=== PATIENT | female | born 1990 | race African-American/Black ===

== ENCOUNTER 2017-08-01 14:24 | Emergency (ER) | payer SELFPAY ==
[~2017-08-01] VITALS: Ht 167.6 cm; Wt 113.5 kg
[~2017-08-01 14:24] MED LIST: ALBU6.7H INH; ZITH250T PO
[2017-08-01 14:26] VITALS: BP 136/83; PULSE 101; RESP 15; TEMP 98.4; O2SAT 98
--- NOTE | 2017-08-01 15:36 | PD ---
HPI Chief Complaint: Skin Problem Time Seen by Provider: 15:36 Travel History International Travel<30 days: No Contact w/Intl Traveler<30days: No Traveled to known affect area: No History of Present Illness HPI 27-year-old female presents emergency Department with complaint of an abscess that is draining to her right upper inner thigh she noticed on Monday. Denies fever, vomiting. Has been doing warm washcloths to the area. Reports area is painful. Symptoms are mild in severity. Has no other medical complaint. No modifying factors or associated signs and symptoms. PFSH Past Medical History Diminished Hearing: No GERD: Yes Hepatitis: No Hypertension: No Respiratory: Yes (bronchitis) Pancreatitis: No Seizures: No Menopausal: No : 0 Past Surgical History Tonsillectomy: No Social History Alcohol Use: Yes (OCC) Tobacco Use: Yes Substance Use: No Allergies-Medications (Allergen,Severity, Reaction): Coded Allergies: No Known Allergies (Verified , 08/01/17) Reported Meds & Prescriptions Reported Meds & Active Scripts Active Ibuprofen 800 Mg Tab 800 Mg PO Q6HR PRN Bactrim DS (Sulfamethoxazole-Trimethoprim) 800-160 Mg Tab 1 Tab PO BID 10 Days Keflex (Cephalexin) 500 Mg Cap 500 Mg PO Q6H 10 Days Proventil Hfa (Albuterol Sulfate) 6.7 Gm Aero 1 Puff INH ONCE * SHAKE WELL BEFORE USE * Zithromax Z-Zana (Azithromycin) 250 Mg Tab 250 Mg PO DIRECTED 5 Days 500 MG (2 TABLETS) PO ON DAY 1, THEN 250 MG (1 TABLET) PO ON DAYS 2 TO 5. Review of Systems Except as stated in HPI: all other systems reviewed are Neg Physical Exam Narrative GENERAL: Well-nourished, well-developed black female patient, in no acute distress; afebrile, nontoxic-appearing SKIN: There is an indurated area to the right upper inner thigh which measures about 1.5 cm in diameter. It is nonfluctuant and there is pointing and drainage. There is no zone of inflammation around it and no lymphangitis. HEAD: Atraumatic. Normocephalic. EYES: Pupils equal and round. No scleral icterus. No injection or drainage. ENT: Mucosa pink and moist. Airway patent. NECK: Trachea midline. CARDIOVASCULAR: Regular rate. RESPIRATORY: No accessory muscle use. GASTROINTESTINAL: Obese. MUSCULOSKELETAL: No obvious deformities. No clubbing. No cyanosis. No edema. NEUROLOGICAL: Awake and alert. Oriented 3. No obvious cranial nerve deficits. Motor grossly within normal limits. Normal speech. PSYCHIATRIC: Appropriate mood and affect; insight and judgment normal. Data Data Last Documented VS Vital Signs Date Time Temp Pulse Resp B/P (MAP) Pulse Ox O2 Delivery O2 Flow Rate FiO2 08/01/17 14:26 98.4 101 15 136/83 (100) 98 Orders Orders Wound Culture And Gram Stain (08/01/17 15:55) Lidocaine 1% Inj (50 Ml) (Xylocaine 1% I (08/01/17 16:00) MDM Medical Decision Making Medical Screen Exam Complete: Yes Emergency Medical Condition: Yes Medical Record Reviewed: Yes Differential Diagnosis Abscess, folliculitis, cellulitis Narrative Course 27-year-old female with draining abscess of the right upper inner thigh. It is nonfluctuant. She is afebrile and nontoxic-appearing. Denies fever, vomiting. Wound culture pending. Keflex, Bactrim, ibuprofen prescribed for home. Instructed patient to follow up with primary care provider. Patient verbalizes understanding and agreement with treatment plan. Patient is medically cleared and stable for discharge. Discussed reasons to return to the emergency department. Patient agrees with treatment plan. The patients vital signs are stable and the patient is stable for outpatient follow-up and treatment. Patient discharged home, stable and in no acute distress. Diagnosis Primary Impression: Abscess of right thigh Referrals: Primary Care Physician Patient Instructions: Abscess (ED), Abscess Follow-up (ED), General Instructions Departure Forms: Tests/Procedures, Work Release Enter return to work date: Aug 02, 2017 Additional Instructions: Complete full course of antibiotics Warm compresses to the affected area Keep area clean and dry Ibuprofen or Tylenol as directed and as needed for pain and inflammation Follow-up with primary care provider Return to emergency department immediately with worsening of symptoms Med/Other Pt SpecificInfo: Prescription(s) given Scripts Ibuprofen (Ibuprofen) 800 Mg Tab 800 MG PO Q6HR Y for PAIN, #30 TAB 0 Refills Prov: Diane Fontenot 08/01/17 Sulfamethoxazole-Trimethoprim (Bactrim DS) 800-160 Mg Tab 1 TAB PO BID for Infection for 10 Days, TAB 0 Refills Prov: Diane Fontenot 08/01/17 Cephalexin (Keflex) 500 Mg Cap 500 MG PO Q6H for Infection for 10 Days, CAP 0 Refills Prov: Diane Fontenot 08/01/17 Disposition: 01 DISCHARGE HOME Condition: Stable Diane Fontenot Aug 01, 2017 15:36
[2017-08-01] MEDS ORDERED: CEPH-460 PO (15:39)
[2017-08-01] MEDS ORDERED: IBUP800T23 PO (15:39)
[2017-08-01] MEDS ORDERED: BACT800T5 PO (15:39)
[2017-08-01] MEDS ORDERED: LIDOCAINE HCL 1% 50 ML VIAL INFIL ONE (16:00)
== END 2017-08-01 16:42 | disposition home or self-care (01) ==
LOC: NEPK 14:24
DX: L02.415 Cutaneous abscess of right lower limb (principal); K21.9 Gastro-esophageal reflux disease without esophagitis; Z72.0 Tobacco use
CPT/HCPCS: 86403; 87070; 99283

== ENCOUNTER 2017-10-16 11:54 | Emergency (ER) | payer SELFPAY ==
[~2017-10-16] VITALS: Ht 170.2 cm; Wt 143.0 kg
[~2017-10-16 11:54] MED LIST changes: +BACT800T5 PO; +CEPH-460 PO; +IBUP1TAB7 PO
[2017-10-16 11:56] VITALS: BP 136/95; PULSE 99; RESP 18; TEMP 98.6; O2SAT 99
--- NOTE | 2017-10-16 12:26 | PD ---
HPI Chief Complaint: Injury Time Seen by Provider: 12:19 Travel History International Travel<30 days: No Contact w/Intl Traveler<30days: No Traveled to known affect area: No History of Present Illness HPI This is a 27-year-old female who presents to the emergency department having had sudden onset of pain in her left knee on the posterior aspect and she felt something pop. Since then she's had moderate severity pain in the knee, intermittent, worse when she extends the knee, and worse when she walks and tries to weight-bear. She denies any injuries. She denies any numbness or weakness in the knee. She does not have any swelling in the leg. PFSH Past Medical History Diminished Hearing: No GERD: Yes Hepatitis: No Hypertension: No Respiratory: Yes (bronchitis) Immunizations Current: Yes Pancreatitis: No Seizures: No Tetanus Vaccination: < 5 Years ?: Not Menopausal: No : 0 Past Surgical History Surgical History: No Previous Surgery Tonsillectomy: No Social History Alcohol Use: Yes (OCC) Tobacco Use: No Substance Use: No Allergies-Medications (Allergen,Severity, Reaction): Coded Allergies: No Known Allergies (Verified Adverse Reaction, Unknown, 10/16/17) Reported Meds & Prescriptions Reported Meds & Active Scripts Active No Active Prescriptions or Reported Medications Review of Systems General / Constitutional: No: Fever, Chills Respiratory: No: Cough, Shortness of Breath Physical Exam Narrative GENERAL: Well-appearing, no acute distress, nontoxic SKIN: Warm and dry. HEAD: Atraumatic. Normocephalic. ENT: No nasal bleeding or discharge. Moist mucous membranes MUSCULOSKELETAL: Able to flex the left knee without difficulty, pain with full extension, tender to palpation in the posterior fossa with no focal tenderness of the patella. No obvious effusion. Vascular: 2+ left DP pulse with normal capillary refill. NEUROLOGICAL: Awake and alert. No obvious cranial nerve deficits. Motor grossly within normal limits. Normal speech. PSYCHIATRIC: Appropriate mood and affect; insight and judgment normal. Data Data Last Documented VS Vital Signs Date Time Temp Pulse Resp B/P (MAP) Pulse Ox O2 Delivery O2 Flow Rate FiO2 10/16/17 11:56 98.6 99 18 136/95 (109) 99 MDM Medical Decision Making Medical Screen Exam Complete: Yes Emergency Medical Condition: Yes Differential Diagnosis Meniscal injury, ligamentous injury, patellar dislocation, sprain Narrative Course This is a 27-year-old female who presents to the emergency department with pain in her left knee that was sudden onset and started yesterday when she felt something move in her knee. She has a benign exam and a normal neurovascular exam. X-ray will be obtained. If reassuring I think the patient can be treated with an Marco wrap, ice and anti-inflammatories. She can be given crutches. If she doesn't improve she should follow-up with orthopedics in one week. Scripts No Active Prescriptions or Reported Meds Rachel Zavala MD Oct 16, 2017 12:26
[2017-10-16] MEDS ORDERED: NAPROXEN 500 MG TAB PO ONE (12:30)
--- NOTE | 2017-10-16 13:35 | RADRPT ---
EXAM DATE/TIME: 10/16/2017 12:34 [facility] COMPARISON: No previous studies available for comparison. INDICATIONS : Left knee became painful last night, denies injury, pain is anterior and posterior when joint is full y extended MEDICAL HISTORY : None. SURGICAL HISTORY : None. ENCOUNTER: Initial ACUITY: 1 day PAIN SCORE: 10/10 LOCATION: Left knee FINDINGS: Four view examination of the left knee demonstrates no evidence of fracture or dislocation. Bony min eralization is normal. The articular surfaces are intact. The suprapatellar soft tissues have a nor mal configuration. CONCLUSION: 1. Negative examination of the knee. Heriberto Casper MD on October 16, 2017 at 13:33 Board Certified Radiologist. This report was verified electronically.
[2017-10-16] MEDS ORDERED: NAPR500T2 PO (13:58)
--- NOTE | 2017-10-16 13:58 | PD ---
Data Data Last Documented VS Vital Signs Date Time Temp Pulse Resp B/P (MAP) Pulse Ox O2 Delivery O2 Flow Rate FiO2 10/16/17 11:56 98.6 99 18 136/95 (109) 99 Orders Orders Knee, Complete (4vws) (10/16/17 ) Naproxen (Naprosyn) (10/16/17 12:30) MDM Supervised Visit with REESE: No Narrative Course X-ray was reviewed and patient was reassured. I suspect the patient has ligamentous injury of her knee. She was given crutches and asked to weight- bear only as tolerated on the knee. We will Marco wrap the knee. If she doesn't improve in one week she should follow-up with an orthopedist. Diagnosis Primary Impression: Left knee sprain Qualified Codes: S83.92XA - Sprain of unspecified site of left knee, initial encounter Referrals: [facility] Patient Instructions: General Instructions Additional Instruction: Marco wrap, elevate, rest and ice your knee. Use crutches as needed. Follow-up with an orthopedic doctor if your pain has not improved in one week. Med/Other Pt SpecificInfo: Prescription(s) given Scripts Naproxen (Naproxen) 500 Mg Tab 500 MG PO BID Y for PAIN SCALE 4 TO 10, #20 TAB 0 Refills Prov: Rachel Zavala MD 10/16/17 Rachel Zavala MD Oct 16, 2017 13:58
== END 2017-10-16 14:19 | disposition home or self-care (01) ==
LOC: NETRI 11:54
DX: S83.92XA Sprain of unspecified site of left knee, initial encounter (principal); K21.9 Gastro-esophageal reflux disease without esophagitis; X50.9XXA Other and unspecified overexertion or strenuous movements or postures, initial encounter
CPT/HCPCS: 73564; 99283; E0113

== ENCOUNTER 2018-05-20 07:27 | Emergency (ER) | payer SELFPAY ==
[~2018-05-20] VITALS: Ht 160 cm; Wt 130.0 kg
[~2018-05-20 07:27] MED LIST changes: -ALBU6.7H INH; -BACT800T5 PO; -CEPH-460 PO; -IBUP1TAB7 PO; +NAPR500T2 PO; -ZITH250T PO
[2018-05-20 07:30] VITALS: BP 147/79; PULSE 98; RESP 14; TEMP 98.6; O2SAT 97
--- NOTE | 2018-05-20 08:03 | PD ---
HPI Chief Complaint: Related Problem Time Seen by Provider: 08:02 Travel History International Travel<30 days: No Contact w/Intl Traveler<30days: No Traveled to known affect area: No History of Present Illness HPI 28-year-old female patient with history of no significant past medical issues, recently found that she was by urine test, has been having several days of vaginal spotting, and cramping, states the spotting has stopped now. She denies any fevers or any other issues. She states that the pain is currently minimal. Modifying Factors: None Associated Signs & Symptoms: and vaginal bleeding Risk Factors: None PFSH Past Medical History Medical History: Denies Significant Hx Diminished Hearing: No GERD: Yes Hepatitis: No Hypertension: No Respiratory: Yes (bronchitis) Immunizations Current: Yes Pancreatitis: No Seizures: No ?: LMP: 04/05/18 Menopausal: No : 0 Past Surgical History Surgical History: No Previous Surgery Tonsillectomy: No Social History Alcohol Use: Yes (OCC) Tobacco Use: Yes (1/2 PPD) Substance Use: No Allergies-Medications (Allergen,Severity, Reaction): Coded Allergies: No Known Allergies (Verified Adverse Reaction, Unknown, 10/16/17) Reported Meds & Prescriptions Reported Meds & Active Scripts Active Naproxen 500 Mg Tab 500 Mg PO BID PRN Review of Systems Except as stated in HPI: all other systems reviewed are Neg Physical Exam Narrative GENERAL: Well-developed young -[place] female patient currently in mild distress. Awake and oriented 3. SKIN: Focused skin assessment warm/dry. HEAD: Atraumatic. Normocephalic. EYES: Pupils equal and round. No scleral icterus. No injection or drainage. ENT: No nasal bleeding or discharge. Mucous membranes pink and moist. NECK: Trachea midline. No JVD. CARDIOVASCULAR: Regular rate and rhythm. No murmur appreciated. RESPIRATORY: No accessory muscle use. Clear to auscultation. Breath sounds equal bilaterally. GASTROINTESTINAL: Abdomen soft, non-tender, nondistended. Hepatic and splenic margins not palpable. MUSCULOSKELETAL: No obvious deformities. No clubbing. No cyanosis. No edema. NEUROLOGICAL: Awake and alert. No obvious cranial nerve deficits. Motor grossly within normal limits. Normal speech. PSYCHIATRIC: Appropriate mood and affect; insight and judgment normal. Data Data Last Documented VS Vital Signs Date Time Temp Pulse Resp B/P (MAP) Pulse Ox O2 Delivery O2 Flow Rate FiO2 05/20/18 07:30 98.6 98 14 147/79 (101) 97 Orders Orders Beta Hcg (Quant/Titer) (05/20/18 07:53) Complete Blood Count With Diff (05/20/18 07:53) Basic Metabolic Panel (Bmp) (05/20/18 07:53) Complete Rh (05/20/18 07:53) Us Pelvis (Ques Pr/Ect)W Trans (05/20/18 09:35) Ed Discharge Order (05/20/18 12:03) Labs Laboratory Tests Test 05/20/18 08:07 White Blood Count 8.2 TH/MM3 Red Blood Count 4.14 MIL/MM3 Hemoglobin 12.2 GM/DL Hematocrit 35.7 % Mean Corpuscular Volume 86.2 FL Mean Corpuscular Hemoglobin 29.4 PG Mean Corpuscular Hemoglobin Concent 34.1 % Red Cell Distribution Width 15.3 % Platelet Count 317 TH/MM3 Mean Platelet Volume 7.4 FL Neutrophils (%) (Auto) 50.9 % Lymphocytes (%) (Auto) 40.0 % Monocytes (%) (Auto) 7.5 % Eosinophils (%) (Auto) 0.7 % Basophils (%) (Auto) 0.9 % Neutrophils # (Auto) 4.2 TH/MM3 Lymphocytes # (Auto) 3.3 TH/MM3 Monocytes # (Auto) 0.6 TH/MM3 Eosinophils # (Auto) 0.1 TH/MM3 Basophils # (Auto) 0.1 TH/MM3 CBC Comment DIFF FINAL Differential Comment Blood Urea Nitrogen 7 MG/DL Creatinine 0.73 MG/DL Random Glucose 84 MG/DL Calcium Level 8.5 MG/DL Sodium Level 137 MEQ/L Potassium Level 3.6 MEQ/L Chloride Level 106 MEQ/L Carbon Dioxide Level 21.9 MEQ/L Anion Gap 9 MEQ/L Estimat Glomerular Filtration Rate 115 ML/MIN Human Chorionic Gonadotropin, Quant 4803 MIU/ML MDM Medical Decision Making Medical Screen Exam Complete: Yes Emergency Medical Condition: Yes Medical Record Reviewed: Yes Interpretation(s) Laboratory Tests Test 05/20/18 08:07 Human Chorionic Gonadotropin, Quant 4803 MIU/ML (0-5) Last 24 hours Impressions Pelvis Ultrasound 05/20/18 0901 Signed Impressions: CONCLUSION: 1. Poorly visualized uterus due to prominent shadowing from overlying bowel ga s. 2. Nonvisualization of right ovary. 3. Moderate pelvic free fluid Differential Diagnosis Threatened AB versus ectopic versus dysmenorrhea Narrative Course Patient is Rh+. Beta-hCG is 4000, but ultrasound did not show obvious IUP, however she would be fairly early still. An ectopic cannot be rule out at this level, versus a completed AB. At this point, my plan would be to have her follow-up with [facility] in 2 days for reevaluation. She should return for any worsening in pain, bleeding, and as needed. The plan was discussed with her and she states understanding. Diagnosis Primary Impression: Threatened Referrals: Hallie Adam MD 2 days Disposition: 01 DISCHARGE HOME Condition: Stable Amna Blake MD May 20, 2018 08:03
[2018-05-20 08:32] LABS: AUTOMATED NEUTROPHIL # 4.2 TH/MM3 (1.8-7.7); BASOPHIL # 0.1 TH/MM3 (0-0.2); BASOPHIL % 0.9 % (0.0-2.0); EOSINOPHIL # 0.1 TH/MM3 (0-0.4); EOSINOPHIL % 0.7 % (0.0-4.0); HEMATOCRIT 35.7 % (35.0-46.0); HEMOGLOBIN 12.2 GM/DL (11.6-15.3); LYMPHOCYTE # 3.3 TH/MM3 (1.0-4.8); MEAN CELL VOLUME 86.2 FL (80.0-100.0); MEAN CORPUSCULAR HEMOGLOBIN 29.4 PG (27.0-34.0); MEAN CORPUSCULAR HGB CONC 34.1 % (32.0-36.0); MEAN PLATELET VOLUME 7.4 FL (7.0-11.0); MONO % 7.5 % (0.0-8.0); MONOCYTE # 0.6 TH/MM3 (0-0.9); NEUT % 50.9 % (16.0-70.0); PLATELET COUNT 317 TH/MM3 (150-450); RED BLOOD COUNT 4.14 MIL/MM3 (4.00-5.30); RED CELL DISTRIBUTION WIDTH 15.3 % (11.6-17.2); WHITE BLOOD COUNT 8.2 TH/MM3 (4.0-11.0)
[2018-05-20 09:00] LABS: BICARBONATE 21.9 MEQ/L (21.0-32.0); CALCIUM 8.5 MG/DL (8.5-10.1); CREATININE 0.73 MG/DL (0.50-1.00)
--- NOTE | 2018-05-20 11:51 | RADRPT ---
EXAM DATE: 05/20/2018 11:32 AM EDT AGE/SEX: 28 years / Female INDICATIONS: Bleeding CLINICAL DATA: This is the patient's initial encounter. Patient reports that signs and symptoms have been present for 2 days and indicates a pain score of 0/10. MEDICAL/SURGICAL HISTORY: Gastroesophageal reflux disease. Bronchitis. Alcohol. Tobacco use. None. COMPARISON: No prior exams available for comparison. TECHNIQUE: Real-time ultrasound of the pelvis was performed using an endovaginal transducer. [facility] [id number] MEASUREMENTS: Uterus:__9.6 x 7.4 x 6.3 cm Endometrial Stripe:__19 mm Right Ovary:__ n/a Not visualized. Left Ovary:__ 4.0 x 3.4 x 1.7 cm FINDINGS: Uterus: Uterus is heterogeneous in appearance. Prominent shadowing limiting evaluation. Right Ovary: Not visualized. Left Ovary: Ovary contains no mass or significant cystic lesion. Other: Moderate amount of pelvic free fluid. CONCLUSION: 1. Poorly visualized uterus due to prominent shadowing from overlying bowel gas. 2. Nonvisualization of right ovary. 3. Moderate pelvic free fluid Electronically signed by: Rancho Hook MD 05/20/2018 11:50 AM EDT
[2018-05-20 12:44] VITALS: BP 134/76
== END 2018-05-20 12:45 | disposition home or self-care (01) ==
LOC: NEPE 07:27
DX: O20.0 Threatened abortion (principal); K21.9 Gastro-esophageal reflux disease without esophagitis; F17.210 Nicotine dependence, cigarettes, uncomplicated; Z3A.00 Weeks of gestation of pregnancy not specified
CPT/HCPCS: 76700; 76817; 80048; 84702; 85025; 86901; 99284

== ENCOUNTER 2018-08-29 09:42 | Inpatient (IN) ==
[2018-08-29] MEDS ORDERED: Naloxone Inj 0.4 MG/ML Vial IV.PUSH PRN (10:32)
[2018-08-29] MEDS ORDERED: Sodium Chlor 0.9% Inj 500 ML IV.SIG PRN (10:32)
[2018-08-29] MEDS ORDERED: Sod Chloride 0.9% Inj 1,000 ML IV.CONT PRN (10:32)
[2018-08-29] MEDS ORDERED: Oxytocin 30 Units/500ml Premix 30 UNITS/500 ML BAG IV.SIG ONE (10:32)
[2018-08-29] MEDS ORDERED: fentaNYL Citrate Inj 100 MCG/2 ML Ampul IV.PUSH PRN ×2 (10:32)
[2018-08-29] MEDS ORDERED: Sodium Chloride 0.9% 2 ML Flush PRN IV.FLUSH (10:42)
[2018-08-29] MEDS ORDERED: Citric Acid/Sodium Citrate Liq 30 ML UDC PO SCH (10:45)
--- NOTE | 2018-08-29 12:45 | P.HPOB ---
History of Present Illness Primary Care Physician: [facility] Chief Complaint: Leaking of fluid History of Present Illness: 28-year-old at 20 weeks gestation presents complaining of leaking of fluid and vaginal bleeding. Patient was subsequently seen by Dr. Salguero and then at change of shift I have seen the patient. [facility] care at [facility] which was uneventful until today. Weeks Gestation:: 20 Para: 0 : 1 Review of Systems All other systems reviewed negative except as stated in HPI [facility] - History History Provided By: Patient - Medical History Medical History: Medical History (Last Updated 05/28/18 @ 18:16 by Zahida Mclain RN) Patient denies medical problems (Acute) - Surgical History Surgical History: Surgical History (Last Updated 05/28/18 @ 14:21 by Renetta Ray RN) No history of previous surgery - Tobacco History Second Hand Smoke Exposure: No Smoking Status: Former smoker Tobacco Type: Cigarettes - Alcohol History How Often Do You Have a Drink Containing Alcohol: Monthly or less Medications and Allergies Active Medications: Active Medications Citric Acid/Sodium Citrate (Sodium Citrate/Citric Acid Liq) 30 ml PO REMOTE ENCODING [employer]PERATIONS [employer]PER[employer] [facility] Stop: 09/02/18 10:44 Fentanyl Citrate (Fentanyl Inj) 50 mcg IV.PUSH Q1H PRN PRN Reason: Pain Scale 3 - 5 Fentanyl Citrate (Fentanyl Inj) 100 mcg IV.PUSH Q1H PRN PRN Reason: PAIN SCALE 6 TO 10 Lactated Ringer's (Lr 1000 Ml Inj) 1,000 mls @ 125 mls/hr IV.CONT .Q8H [facility] Last Admin: 08/29/18 11:00 Dose: 125 mls/hr Lactated Ringer's (Lr 1000 Ml Inj) 1,000 mls @ 3,000 mls/hr IV.SIG UNSCH PRN PRN Reason: compromise or epidural Sodium Chloride (Ns Inj) 500 mls @ 1,000 mls/hr IV.SIG UNSCH PRN PRN Reason: SEE LABEL COMMENTS Sodium Chloride (Ns Inj) 1,000 mls @ 100 mls/hr IV.CONT .Q10H PRN PRN Reason: SEE LABEL COMMENTS Lidocaine HCl (Xylocaine 1% Inj) 0.1 ml I-DERMAL PRN PRN PRN Reason: For IV start Stop: 09/01/18 10:31 Lidocaine HCl (Xylocaine 1% Inj) 10 ml INFILTRATN PRN PRN PRN Reason: For episiotomy repair Stop: 08/31/18 10:31 Mineral Oil (Muri-Lube Oil) 10 ml TOPICAL PRN PRN PRN Reason: PRN perineal massage Naloxone HCl (Narcan Inj) 0.1 mg IV.PUSH Q2M PRN PRN Reason: for opiate reversal Ondansetron HCl (Zofran Inj) 4 mg IV.PUSH Q6H PRN PRN Reason: NAUSEA OR VOMITING Sodium Chloride (Ns Flush) 2 ml IV.FLUSH BID MADIE Sodium Chloride (Ns Flush) 2 ml IV.FLUSH PRN PRN PRN Reason: FLUSH AFTER USING IV ACCESS Allergies Allergy/AdvReac Type Severity Reaction Status Date / Time No Known Allergies Allergy Verified 08/29/18 12:10 Home Medications Medication Instructions Recorded Confirmed Type PNV cmb#95-ferrous fumarate-FA 1 tab PO DAILY 08/29/18 08/29/18 History [] Exam Vital signs: Vital Signs 08/29/18 10:10 08/29/18 10:45 Temperature 98.6 F Pulse Rate 99 H Respiratory Rate 20 Blood Pressure 139/75 Intake & Output 08/28/18 08/29/18 08/29/18 18:59 06:59 18:59 Weight 151.5 kg Narrative: GENERAL: Well-nourished, well-developed patient, morbidly obese. SKIN: Warm and dry. HEAD: Normocephalic and atraumatic. EYES: No scleral icterus. No injection or drainage. ENT: No nasal drainage noted. Mucous membranes pink. Airway patent. NECK: Supple, trachea midline. No JVD. CARDIOVASCULAR: Regular rate and rhythm without murmurs, gallops, or rubs. RESPIRATORY: Breath sounds equal bilaterally. No accessory muscle use. BREASTS: Bilateral exam showed no masses , no retractions, no nipple discharge. ABDOMEN/GI: Abdomen soft, non-tender, bowel sounds present, no rebound, no guarding Gravid to 20 weeks size Fundal Height: Morbidly obese patient limited fundal height GENITOURINARY: External Genitalia: intact and normal in appearance BUS glands: Unremarkable Cervix: Moderate Dilatation: Fingertip Effacement: Long Station: OOP Per vagina per Dr. Salguero earlier moderate to profuse vaginal bleeding at this time note well-formed clots but no active bright red bleeding Membranes: ruptured Uterine Contractions: Not appreciated FHT's + EXTREMITIES: No cyanosis or edema. BACK: Nontender without obvious deformity. No CVA tenderness. NEUROLOGICAL: Awake and alert. Motor and sensory grossly within normal limits. Five out of 5 muscle strength in all muscle groups. Normal speech. Results - Labs CBC & Chem 7: 08/29/18 12:29 08/29/18 12:29 - Imaging Ultrasound done on 08/23/2018: Single intrauterine anterior placenta ERICA within normal weight 307 g Ultrasound done today September 05, 2018 single intrauterine placenta is covering the office of the cervix ERICA is 0 Caprini VTE Risk Assessment Caprini VTE Risk Assessment: No/Low Risk (score <= 1) Caprini Risk Assessment Model: Point Value = 1 Point Value = 2 Point Value = 3 Point Value = 5 Age 41-60 Minor surgery BMI > 25 kg/m2 Swollen legs Varicose veins or History of unexplained or recurrent spontaneous Oral contraceptives or hormone replacement Sepsis (< 1 month) Serious lung disease, including pneumonia (< 1 month) Abnormal pulmonary function Acute myocardial infarction Congestive heart failure (< 1 month) History of inflammatory bowel disease Medical patient at bed rest Age 61-74 Arthroscopic surgery Major open surgery (> 45 min) Laparoscopic surgery (> 45 min) Malignancy Confined to bed (> 72 hours) Immobilizing plaster cast Central venous access Age >= 75 History of VTE Family history of VTE Factor V Leiden Prothrombin [id number] Lupus anticoagulant Anticardiolipin antibodies Elevated serum homocysteine Heparin-induced thrombocytopenia Other congenital or acquired thrombophilia Stroke (< 1 month) Elective arthroplasty Hip, pelvis, or leg fracture Acute spinal cord injury (< 1 month) Prophylaxis Regimen: Total Risk Factor Score Risk Level Prophylaxis Regimen 0-1 Low Early ambulation 2 Moderate Order ONE of the following: *Sequential Compression Device (SCD) *Heparin 5000 units SQ BID 3-4 Higher Order ONE of the following medications: *Heparin 5000 units SQ TID *Enoxaparin/Lovenox 40 mg SQ daily (WT < 150 kg, CrCl > 30 mL/min) *Enoxaparin/Lovenox 30 mg SQ daily (WT < 150 kg, CrCl > 10-29 mL/min) *Enoxaparin/Lovenox 30 mg SQ BID (WT < 150 kg, CrCl > 30 mL/min) AND/OR *Sequential Compression Device (SCD) 5 or more Highest Order ONE of the following medications: *Heparin 5000 units SQ TID (Preferred with Epidurals) *Enoxaparin/Lovenox 40 mg SQ daily (WT < 150 kg, CrCl > 30 mL/min) *Enoxaparin/Lovenox 30 mg SQ daily (WT < 150 kg, CrCl > 10-29 mL/min) *Enoxaparin/Lovenox 30 mg SQ BID (WT < 150 kg, CrCl > 30 mL/min) AND *Sequential Compression Device (SCD) Assessment and Plan - Diagnosis (1) Placental abruption in second trimester Code(s): O45.92 - Premature separation of placenta, unspecified, second trimester Status: Acute (2) Oligohydramnios due to rupture of membranes Code(s): O41.00X0 - Oligohydramnios, unspecified trimester, not applicable or unspecified; O42.90 - Premature rupture of membranes, unspecified as to length of time between rupture and onset of labor, unspecified weeks of gestation Status: Acute (3) 20 weeks gestation of Code(s): Z3A.20 - 20 weeks gestation of Status: Acute Plan: Had an extensive discussion with patient and family. Unfortunately at this time the is not viable. Initially patient(her mother father several aunts and cousins as well as the father of the baby) and family requested transfer however the estimated weight is 307 g. They were made aware that at this weight of just above 300 g the likelihood of any type of survival outside of the uterus is virtually nil .I did discuss with them delivering a 500 g but even that is considered to be quite rare to have intact or any type of survivability. Clinically strongly suggests not only oligohydramnios secondary to rupture of membranes but placental abruption being the placenta was noted to be anterior on an ultrasound which was only several days ago and now covering the cervical os. At this time since there is a heartbeat they do not want any actions to try to actively evacuate or terminate the however they understand should an emergency arise and bleeding becomes heavy or profuse and compromises the maternal well being that evacuation of the may need to be performed whether a trial of labor vaginally with induction medications or emergent hysterotomy to evacuate the . At this time will obtain a serial CBC, type and crossmatch, as well as start IV antibiotics. has signed a consent to proceed for vaginal delivery or surgical intervention as clinically indicated
[2018-08-29 12:49] LABS: Baso % (Auto) 0.6 % (0.0-2.0); Eos # (Auto) 0.1 th/mm3 (0.0-0.4); Eos % (Auto) 1.4 % (0.0-4.0); Hematocrit 33.9 % (35.0-46.0); Hemoglobin 11.5 gm/dL (11.6-15.3); Lymph # (Auto) 2.2 th/mm3 (1.0-4.8); Lymph % (Auto) 26.9 % (9.0-44.0); Mean Corpuscular Hemoglobin 30.1 pg (27.0-34.0); Mean Corpuscular Volume 88.5 fL (80.0-100.0); Mono # (Auto) 0.7 th/mm3 (0.0-0.9); Mono % (Auto) 8.5 % (0.0-8.0); Neut # (Auto) 5.1 th/mm3 (1.8-7.7); Neut % (Auto) 62.6 % (16.0-70.0); Platelet Count 310 th/mm3 (150-450); Red Blood Count 3.83 mil/mm3 (4.00-5.30); Red Cell Distribution Width 14.6 % (11.6-17.2); White Blood Count 8.2 th/mm3 (4.0-11.0)
[2018-08-29 13:14] LABS: Alanine Aminotransferase 60 U/L (10-53); Albumin 2.6 g/dL (3.4-5.0); Anion Gap 10 meq/L (5-15); Aspartate Aminotransferase 25 U/L (15-37); Blood Urea Nitrogen 8 mg/dL (7-18); Calcium 8.5 mg/dL (8.5-10.1); Carbon Dioxide 23.7 meq/L (21.0-32.0); Chloride 105 meq/L (98-107); Glomerular Filtration Rate Greater Than 89 mL/min (>89); Glucose,Random 90 mg/dL (74-106); Potassium 4.1 meq/L (3.5-5.1); Sodium 139 meq/L (136-145)
[2018-08-29 13:16] LABS: Alkaline Phosphatase 73 U/L (45-117); Total Protein 6.6 g/dL (6.4-8.2)
[2018-08-29 14:22] LABS: Baso % (Auto) 0.4 % (0.0-2.0); Eos # (Auto) 0.1 th/mm3 (0.0-0.4); Eos % (Auto) 1.7 % (0.0-4.0); Hematocrit 33.5 % (35.0-46.0); Hemoglobin 11.4 gm/dL (11.6-15.3); Lymph # (Auto) 2.3 th/mm3 (1.0-4.8); Lymph % (Auto) 30.1 % (9.0-44.0); Mean Corpuscular HGB Conc 34.1 % (32.0-36.0); Mean Corpuscular Hemoglobin 30.2 pg (27.0-34.0); Mean Corpuscular Volume 88.5 fL (80.0-100.0); Mean Platelet Volume 7.9 fL (7.0-11.0); Mono # (Auto) 0.6 th/mm3 (0.0-0.9); Mono % (Auto) 8.3 % (0.0-8.0); Neut # (Auto) 4.5 th/mm3 (1.8-7.7); Neut % (Auto) 59.5 % (16.0-70.0); Platelet Count 291 th/mm3 (150-450); Red Blood Count 3.78 mil/mm3 (4.00-5.30); Red Cell Distribution Width 14.8 % (11.6-17.2); White Blood Count 7.5 th/mm3 (4.0-11.0)
[2018-08-29] MEDS ORDERED: Erythromycin Inj 250 MG in Sodium Chlor 0.9% Inj 100 ML IV.SIG SCH ×2 (16:00→17:00)
[2018-08-29 17:17] LABS: Bilirubin,Urine Negative (Negative); Glucose,Urine (UA) Negative (Negative); Leukocyte Esterase,Urine Trace (Negative); Mucus,Urine Few /lpf (Occasional); Nitrite,Urine Negative (Negative); Specific Gravity,Urine 1.012 (1.002-1.035); Squamous Epithelial Cell,Urine 1 /hpf (0-5)
[2018-08-29 17:27] LABS: Clarity,Urine Slightly Cloudy (Clear); Color,Urine Pink (Yellw/Straw)
[2018-08-29 17:49] LABS: Amphetamine Urine With Conf Neg (Neg); Benzodiazepine Urine With Conf Neg (Neg)
[2018-08-29] MEDS ORDERED: Acetaminophen 325 MG Tablet PO PRN (19:29)
[2018-08-29] MEDS: Famotidine PF Inj 20 MG/2 ML Vial IV.PUSH SCH (22:17)
[2018-08-29] MEDS: Sodium Chloride 0.9% 2 ML Flush BID IV.FLUSH SCH (22:17)
[2018-08-30] MEDS ORDERED: miSOPROStol 200 MCG Tablet PO ONE
--- NOTE | 2018-08-30 00:03 | P.OBLABOR ---
Subjective Interval history: Of note: Patient seen earlier after extensive discussion with patient and family regarding survival rate @ 20 weeks with no amniotic fluid and an abrupted placenta as well as maternal risks of fever, DIC, possible necessity of surgery including but not limited to hysterectomy should she become severely ill patient has decided to proceed with termination of . Cervidil was ordered and placed by RN earlier however MD received a call that it fell out after patient use the restroom. A second Cervidil just placed by MD in the posterior fornix the cervix is noted to be fingertip dilation 50% effaced presenting part is out of pelvis. Continue with current plan at this time no active vaginal bleeding present. Objective Vital Signs: Vital Signs - 8 hr 08/29/18 20:27 08/29/18 23:02 Temperature 98.5 F 98.5 F Pulse Rate 94 H 98 H Respiratory Rate 18 18 Blood Pressure 135/80 123/70 Objective: Pelvic Exam: Cervix: [-] Dilatation: [-] Effacement: [-] Station: [-] Presentation: [-] Membranes: [intact or ruptured] Uterine Contractions: [-] FHT's: Category: [-] Baseline: [-] Reactive: [-] Variability: [-] Decels: [-] Assessment and Plan - Diagnosis (1) Placental abruption in second trimester Code(s): O45.92 - Premature separation of placenta, unspecified, second trimester Status: Acute (2) Oligohydramnios due to rupture of membranes Code(s): O41.00X0 - Oligohydramnios, unspecified trimester, not applicable or unspecified; O42.90 - Premature rupture of membranes, unspecified as to length of time between rupture and onset of labor, unspecified weeks of gestation Status: Acute (3) 20 weeks gestation of Code(s): Z3A.20 - 20 weeks gestation of Status: Acute Plan: Had an extensive discussion with patient and family. Unfortunately at this time the is not viable. Initially patient(her mother father several aunts and cousins as well as the father of the baby) and family requested transfer however the estimated weight is 307 g. They were made aware that at this weight of just above 300 g the likelihood of any type of survival outside of the uterus is virtually nil .I did discuss with them delivering a 500 g but even that is considered to be quite rare to have intact or any type of survivability. Clinically strongly suggests not only oligohydramnios secondary to rupture of membranes but placental abruption being the placenta was noted to be anterior on an ultrasound which was only several days ago and now covering the cervical os. At this time since there is a heartbeat they do not want any actions to try to actively evacuate or terminate the however they understand should an emergency arise and bleeding becomes heavy or profuse and compromises the maternal well being that evacuation of the may need to be performed whether a trial of labor vaginally with induction medications or emergent hysterotomy to evacuate the . At this time will obtain a serial CBC, type and crossmatch, as well as start IV antibiotics. has signed a consent to proceed for vaginal delivery or surgical intervention as clinically indicated
--- NOTE | 2018-08-30 07:55 | P.OBLABOR ---
Subjective Interval history: pt post Cervidil x2 with no change in cervix noted. No active bleeding at this time. Plan of care change management coordinator to Cytotec 600 every 4. I have also reviewed her ultrasounds patient does have a myoma which is approximately 7 x 8 cm however it is not obstructing the lower uterine segment. At this time afebrile continue IV antibiotics. Type and crossed for 2 units. CBC pending this morning peer Objective Vital Signs: Vital Signs - 8 hr 08/30/18 00:25 08/30/18 02:25 08/30/18 03:25 Temperature Pulse Rate 95 H 94 H 92 H Respiratory Rate Blood Pressure 08/30/18 03:50 08/30/18 05:25 Temperature 98.4 F Pulse Rate 91 H 94 H Respiratory Rate 18 Blood Pressure 136/75 Objective: Pelvic Exam: Cervix: [-] Dilatation: [-] Effacement: [-] Station: [-] Presentation: [-] Membranes: [intact or ruptured] Uterine Contractions: [-] FHT's: Category: [-] Baseline: [-] Reactive: [-] Variability: [-] Decels: [-] Assessment and Plan - Diagnosis (1) Placental abruption in second trimester Code(s): O45.92 - Premature separation of placenta, unspecified, second trimester Status: Acute (2) Oligohydramnios due to rupture of membranes Code(s): O41.00X0 - Oligohydramnios, unspecified trimester, not applicable or unspecified; O42.90 - Premature rupture of membranes, unspecified as to length of time between rupture and onset of labor, unspecified weeks of gestation Status: Acute (3) 20 weeks gestation of Code(s): Z3A.20 - 20 weeks gestation of Status: Acute Plan: Had an extensive discussion with patient and family. Unfortunately at this time the is not viable. Initially patient(her mother father several aunts and cousins as well as the father of the baby) and family requested transfer however the estimated weight is 307 g. They were made aware that at this weight of just above 300 g the likelihood of any type of survival outside of the uterus is virtually nil .I did discuss with them delivering a 500 g but even that is considered to be quite rare to have intact or any type of survivability. Clinically strongly suggests not only oligohydramnios secondary to rupture of membranes but placental abruption being the placenta was noted to be anterior on an ultrasound which was only several days ago and now covering the cervical os. At this time since there is a heartbeat they do not want any actions to try to actively evacuate or terminate the however they understand should an emergency arise and bleeding becomes heavy or profuse and compromises the maternal well being that evacuation of the may need to be performed whether a trial of labor vaginally with induction medications or emergent hysterotomy to evacuate the . At this time will obtain a serial CBC, type and crossmatch, as well as start IV antibiotics. has signed a consent to proceed for vaginal delivery or surgical intervention as clinically indicated
[2018-08-30] MEDS: Famotidine PF Inj 20 MG/2 ML Vial IV.PUSH SCH (08:57)
[2018-08-30] MEDS: miSOPROStol 200 MCG Tablet VAGINAL SCH ×4 (08:58→21:53)
[2018-08-30 09:16] LABS: Baso % (Auto) 0.5 % (0.0-2.0); Eos # (Auto) 0.1 th/mm3 (0.0-0.4); Eos % (Auto) 1.8 % (0.0-4.0); Hematocrit 35.4 % (35.0-46.0); Hemoglobin 11.9 gm/dL (11.6-15.3); Lymph # (Auto) 1.9 th/mm3 (1.0-4.8); Lymph % (Auto) 29.7 % (9.0-44.0); Mean Corpuscular HGB Conc 33.6 % (32.0-36.0); Mean Corpuscular Hemoglobin 29.9 pg (27.0-34.0); Mean Corpuscular Volume 89.1 fL (80.0-100.0); Mean Platelet Volume 7.8 fL (7.0-11.0); Mono # (Auto) 0.6 th/mm3 (0.0-0.9); Mono % (Auto) 8.7 % (0.0-8.0); Neut # (Auto) 3.8 th/mm3 (1.8-7.7); Neut % (Auto) 59.3 % (16.0-70.0); Platelet Count 295 th/mm3 (150-450); Red Blood Count 3.98 mil/mm3 (4.00-5.30); Red Cell Distribution Width 14.7 % (11.6-17.2); White Blood Count 6.4 th/mm3 (4.0-11.0)
[2018-08-30] MEDS: Sodium Chloride 0.9% 2 ML Flush BID IV.FLUSH SCH (14:14)
[2018-08-30] MEDS ORDERED: Measles/Mumps/Rubella Vaccine Inj 0.5 ML Vial SQ ONE (16:00)
[2018-08-30] MEDS ORDERED: Diphtheria/Tetanus/Pertussis Vaccine Inj 0.5 ML Syringe IM ONE (16:00)
[2018-08-30] MEDS ORDERED: fentaNYL 2MCG-Bupiv 0.125% Epi 150 ML EPIDURAL ONE (19:13)
[2018-08-30] MEDS ORDERED: Lidocaine PF 1% Inj 5 ML Vial ONE (19:30)
[2018-08-30] MEDS ORDERED: Lidocaine 2%/Epinephrine 1:200,000 PF Inj 20 ML Vial ONE (19:30)
[2018-08-30] MEDS ORDERED: Lidocaaine 1.5%/Epinephrine 1:200,000 PF Inj 5 ML Amp ONE (20:11)
[2018-08-30] MEDS ORDERED: Oxytocin 30 Units/500ml Premix 30 UNITS/500 ML BAG ONE (20:59)
[2018-08-30] MEDS ORDERED: Acetaminophen 325 MG Tablet PO PRN (21:05)
[2018-08-30] MEDS ORDERED: Bisacodyl 10 MG Supp RECTAL PRN (21:05)
[2018-08-30] MEDS ORDERED: Witch Hazel 50%/Glyderin 12.5% 40 Pad Jar RECTAL PRN (21:05)
[2018-08-30] MEDS ORDERED: Naloxone Inj 0.4 MG/ML Vial IV.PUSH PRN (21:05)
[2018-08-30] MEDS ORDERED: Oxytocin 30 Units/500ml Premix 30 UNITS/500 ML BAG IV.CONT PRN (21:05)
[2018-08-30] MEDS ORDERED: Benzocaine 20% Top Spray 60 ML Can TOPICAL PRN (21:05)
[2018-08-30] MEDS ORDERED: Zolpidem Tartrate 5 MG Tablet PO PRN (21:05)
--- NOTE | 2018-08-30 21:08 | P.OBLABOR ---
Subjective Interval history: Late Entry Note from 5pm Exam Pt is comfortable s/p fentanyl. Cvx examined and palpable cord prolapse without pulse. extremities coming through os. Minimal vaginal bleeding present. Cytotec placed by RN. Objective Vital Signs: Vital Signs - 8 hr 08/30/18 13:11 08/30/18 14:05 08/30/18 14:20 Temperature 98.7 F Pulse Rate 88 93 H Respiratory Rate 17 Blood Pressure 08/30/18 15:26 08/30/18 15:40 08/30/18 15:45 Temperature Pulse Rate 93 H 86 92 H Respiratory Rate 18 Blood Pressure 106/71 08/30/18 16:25 08/30/18 16:26 08/30/18 17:58 Temperature 98.4 F Pulse Rate 87 Respiratory Rate 17 17 Blood Pressure 08/30/18 18:25 08/30/18 19:25 08/30/18 19:52 Temperature Pulse Rate 90 86 97 H Respiratory Rate Blood Pressure 120/64 08/30/18 20:13 08/30/18 20:18 Temperature 99.2 F Pulse Rate 93 H 94 H Respiratory Rate 18 Blood Pressure Objective: Pelvic Exam: Cervix: [-] Dilatation: [-] Effacement: [-] Station: [-] Presentation: [-] Membranes: [intact or ruptured] Uterine Contractions: [-] FHT's: Category: [-] Baseline: [-] Reactive: [-] Variability: [-] Decels: [-] Assessment and Plan - Diagnosis (1) Placental abruption in second trimester Code(s): O45.92 - Premature separation of placenta, unspecified, second trimester Status: Acute (2) Oligohydramnios due to rupture of membranes Code(s): O41.00X0 - Oligohydramnios, unspecified trimester, not applicable or unspecified; O42.90 - Premature rupture of membranes, unspecified as to length of time between rupture and onset of labor, unspecified weeks of gestation Status: Acute (3) 20 weeks gestation of Code(s): Z3A.20 - 20 weeks gestation of Status: Acute Plan: Had an extensive discussion with patient and family. Unfortunately at this time the is not viable. Initially patient(her mother father several aunts and cousins as well as the father of the baby) and family requested transfer however the estimated weight is 307 g. They were made aware that at this weight of just above 300 g the likelihood of any type of survival outside of the uterus is virtually nil .I did discuss with them delivering a 500 g but even that is considered to be quite rare to have intact or any type of survivability. Clinically strongly suggests not only oligohydramnios secondary to rupture of membranes but placental abruption being the placenta was noted to be anterior on an ultrasound which was only several days ago and now covering the cervical os. At this time since there is a heartbeat they do not want any actions to try to actively evacuate or terminate the however they understand should an emergency arise and bleeding becomes heavy or profuse and compromises the maternal well being that evacuation of the may need to be performed whether a trial of labor vaginally with induction medications or emergent hysterotomy to evacuate the . At this time will obtain a serial CBC, type and crossmatch, as well as start IV antibiotics. has signed a consent to proceed for vaginal delivery or surgical intervention as clinically indicated
--- NOTE | 2018-08-30 21:09 | P.OBDELI ---
Weeks Gestation: 20 Patient Started Active Labor: Yes Medical Induction of Labor: Yes Artificial Rupture of Membrane: No Anesthesia: Epidural Episiotomy: none Vaginal Delivery: Normal Placenta: Spontaneous delivery, Intact, Uterus explored + Estimated blood loss (mL): 150 Infant: Female Infant Female A Delivery Time: 20:55 score (1 min): 0 score (5 min): 0 score (10 min): 0
[2018-08-31] MEDS ORDERED: fentaNYL Citrate Inj 100 MCG/2 ML Ampul EPIDURAL ONE (00:26)
[2018-08-31] MEDS ORDERED: fentaNYL 2MCG-Bupiv 0.125% Epi 150 ML EPIDURAL PRN (00:26)
[2018-08-31] MEDS: Sodium Chloride 0.9% 2 ML Flush BID IV.FLUSH SCH (01:04)
[2018-08-31] MEDS: Famotidine PF Inj 20 MG/2 ML Vial IV.PUSH SCH (01:04)
[2018-08-31] MEDS: miSOPROStol 200 MCG Tablet VAGINAL SCH ×2 (01:04→06:00)
[2018-08-31 06:02] VITALS: RESP 18
--- NOTE | 2018-08-31 08:32 | P.PNOB ---
Subjective Post day: 1 Interval history: Patient seen and examined bedside this morning. Patient denies any abdominal pain or contractions. No nausea or vomiting. Patient is voiding without difficulty. No excessive bleeding, only spotting since the delivery. No chest pain/shortness of breath/dizziness. Patient is inquiring about when she can go home. Objective Vital Signs/I&O: Vital Signs 08/30/18 09:15 08/30/18 09:27 08/30/18 09:30 Temperature 98.2 F Pulse Rate 97 H 88 96 H Respiratory Rate 17 Blood Pressure 118/56 L 08/30/18 10:10 08/30/18 10:15 08/30/18 10:20 Temperature Pulse Rate 88 90 89 Respiratory Rate Blood Pressure 08/30/18 10:25 08/30/18 10:45 08/30/18 11:50 Temperature Pulse Rate 88 87 79 Respiratory Rate Blood Pressure 08/30/18 11:55 08/30/18 12:10 08/30/18 12:25 Temperature Pulse Rate 91 H 169 H 86 Respiratory Rate 18 Blood Pressure 08/30/18 13:11 08/30/18 14:05 08/30/18 14:20 Temperature 98.7 F Pulse Rate 88 93 H Respiratory Rate 17 Blood Pressure 08/30/18 15:26 08/30/18 15:40 08/30/18 15:45 Temperature Pulse Rate 93 H 86 92 H Respiratory Rate 18 Blood Pressure 106/71 08/30/18 16:25 08/30/18 16:26 08/30/18 17:58 Temperature 98.4 F Pulse Rate 87 Respiratory Rate 17 17 Blood Pressure 08/30/18 18:25 08/30/18 19:25 08/30/18 19:52 Temperature Pulse Rate 90 86 97 H Respiratory Rate Blood Pressure 120/64 08/30/18 20:13 08/30/18 20:18 08/30/18 20:45 Temperature 99.2 F Pulse Rate 93 H 94 H 96 H Respiratory Rate 18 Blood Pressure 126/76 08/30/18 21:15 08/30/18 21:30 08/30/18 22:20 Temperature Pulse Rate 101 H 96 H 92 H Respiratory Rate 18 Blood Pressure 105/67 08/30/18 22:30 08/31/18 00:57 08/31/18 00:59 Temperature 98.5 F Pulse Rate 97 H Respiratory Rate 18 18 Blood Pressure 119/77 08/31/18 03:46 08/31/18 05:54 08/31/18 06:00 Temperature 98.8 F 98.4 F Pulse Rate 96 H 92 H Respiratory Rate 16 18 Blood Pressure 114/43 L 137/83 Intake & Output 08/30/18 08/31/18 08/31/18 18:59 06:59 18:59 Intake Total 1200 / 1200 1000 / 1000 Balance 1200 / 1200 1000 / 1000 Intake: IV 1200 / 1200 1000 / 1000 LR 1000 mL Inj 1,000 ML @ 125 1000 / 1000 1000 / 1000 mls/hr IV.CONT .Q8H [facility] Rx#: [id number] Ampicillin Inj 2,000 MG In NS 200 / 200 Inj 100 ML @ 400 mls/hr IV.SIG Q6H [facility] Rx#:[id number] Result Diagrams: 08/30/18 08:54 08/29/18 12:29 Objective Remarks: GENERAL: Well-nourished, well-developed patient. CARDIOVASCULAR: Regular rate and rhythm without murmurs, gallops, or rubs. RESPIRATORY: Breath sounds equal bilaterally. No accessory muscle use. ABDOMEN/GI: Abdomen soft, non-tender. Fundus: Firm, non-tender at umbilicus. GENITOURINARY: Light to moderate bleeding. EXTREMITIES: No cyanosis or edema, non-tender, without signs of DVT. Medications and IVs: Active Medications Acetaminophen (Tylenol) 650 mg PO Q4H PRN PRN Reason: HEADACHE Last Admin: 08/29/18 20:03 Dose: 650 mg Acetaminophen (Tylenol) 650 mg PO Q4H PRN PRN Reason: PAIN SCALE 1 TO 2 Al Hydroxide/Mg Hydroxide (Milk Of Magnesia Liq) 30 ml PO Q12H PRN PRN Reason: Mild Constipation Benzocaine (Americaine 20% [place]) 1 spray TOPICAL Q4H PRN PRN Reason: For Perineum Discomfort Bisacodyl (Dulcolax Supp) 10 mg RECTAL DAILY PRN PRN Reason: SEVERE CONSITIPATION Calcium Gluconate (Calcium Gluconate Inj) 1 gm IV.PUSH ONCE PRN PRN Reason: Magnesium toxicity Citric Acid/Sodium Citrate (Sodium Citrate/Citric Acid Liq) 30 ml PO LOCKER ROOM [employer]END[employer] [facility] Stop: 09/02/18 10:44 Ephedrine Sulfate (Ephedrine/Ns Syringe) 10 mg IV.PUSH UNSCH PRN PRN Reason: SEE LABEL COMMENTS Stop: 09/01/18 00:26 Famotidine (Pepcid Pf Inj) 20 mg IV.PUSH Q12HR MADIE Last Admin: 08/31/18 01:04 Dose: Not Given Fentanyl Citrate (Fentanyl Inj) 50 mcg IV.PUSH Q1H PRN PRN Reason: Pain Scale 3 - 5 Last Admin: 08/30/18 16:18 Dose: 50 mcg Fentanyl Citrate (Fentanyl Inj) 100 mcg IV.PUSH Q1H PRN PRN Reason: PAIN SCALE 6 TO 10 Last Admin: 08/30/18 17:56 Dose: 100 mcg Lactated Ringer's (Lr 1000 Ml Inj) 1,000 mls @ 125 mls/hr IV.CONT .Q8H MADIE Last Admin: 08/31/18 06:00 Dose: Not Given Lactated Ringer's (Lr 1000 Ml Inj) 1,000 mls @ 3,000 mls/hr IV.SIG UNSCH PRN PRN Reason: compromise or epidural Sodium Chloride (Ns Inj) 500 mls @ 1,000 mls/hr IV.SIG UNSCH PRN PRN Reason: SEE LABEL COMMENTS Sodium Chloride (Ns Inj) 1,000 mls @ 100 mls/hr IV.CONT .Q10H PRN PRN Reason: SEE LABEL COMMENTS Ampicillin Sodium 2,000 mg/ (Sodium Chloride) 100 mls @ 400 mls/hr IV.SIG Q6H [facility]ADIE Stop: 08/31/18 15:59 Last Admin: 08/31/18 06:00 Dose: Not Given Lactated Ringer's (Lr 1000 Ml Inj) 1,000 mls @ 125 mls/hr IV.CONT .Q8H MADIE Last Admin: 08/31/18 01:04 Dose: Not Given Oxytocin (Pitocin 30 Units/Ns 500 Ml Premix) 30 units in 500 mls @ 100 mls/hr IV.CONT UNSCH PRN PRN Reason: Heavy bleeding Fentanyl/Bupivacaine/Sodium Chlor (Fentanyl 2 Mcg-Bupiv 0.125% Epi) 150 mls @ 12 mls/hr EPIDURAL PRN PRN PRN Reason: for Labor Pain Last Admin: 08/30/18 19:45 Dose: 12 mls/hr Ibuprofen (Motrin) 800 mg PO Q8H PRN PRN Reason: For Cramping Last Admin: 08/31/18 06:00 Dose: 800 mg Lactulose (Lactulose Liq) 30 ml PO DAILY PRN PRN Reason: SEVERE CONSITIPATION Lidocaine HCl (Xylocaine 1% Inj) 0.1 ml I-DERMAL PRN PRN PRN Reason: For IV start Stop: 09/01/18 10:31 Lidocaine HCl (Xylocaine 1% Inj) 10 ml INFILTRATN PRN PRN PRN Reason: For episiotomy repair Stop: 08/31/18 10:31 Mineral Oil (Muri-Lube Oil) 10 ml TOPICAL PRN PRN PRN Reason: PRN perineal massage Miscellaneous Information (Misc Information) 1 each OTHER UNSCH PRN PRN Reason: SEE LABEL COMMENTS Stop: 09/01/18 00:26 Miscellaneous Information (Misc Information) 1 each OTHER UNSCH PRN PRN Reason: SEE LABEL COMMENTS Stop: 09/01/18 00:26 Naloxone HCl (Narcan Inj) 0.1 mg IV.PUSH Q2M PRN PRN Reason: for opiate reversal Naloxone HCl (Narcan Inj) 0.1 mg IV.PUSH Q2M PRN PRN Reason: for opiate reversal Ondansetron HCl (Zofran Inj) 4 mg IV.PUSH Q6H PRN PRN Reason: NAUSEA OR VOMITING Last Admin: 08/30/18 21:50 Dose: 4 mg Ondansetron HCl (Zofran Odt) 4 mg PO Q6H PRN PRN Reason: NAUSEA OR VOMITING Senna/Docusate Sodium (Johanna-Colace) 1 tab PO BID [facility] Sennosides (Senokot) 17.2 mg PO Q12H PRN PRN Reason: Moderate Constipation Sodium Chloride (Ns Flush) 2 ml IV.FLUSH BID MADIE Last Admin: 08/31/18 01:04 Dose: Not Given Sodium Chloride (Ns Flush) 2 ml IV.FLUSH PRN PRN PRN Reason: FLUSH AFTER USING IV ACCESS Sodium Chloride (Ns Flush) 2 ml IV.FLUSH BID MADIE Sodium Chloride (Ns Flush) 2 ml IV.FLUSH PRN PRN PRN Reason: FLUSH AFTER USING IV ACCESS Witch Radha/Glycerin (Tucks Pads) 1 applicatio RECTAL QID PRN PRN Reason: HEMORRHOIDS Zolpidem Tartrate (Ambien) 5 mg PO HS PRN PRN Reason: SLEEP Last Admin: 08/31/18 01:03 Dose: 5 mg Assessment and Plan - Diagnosis (1) (normal spontaneous vaginal delivery) Code(s): O80 - Encounter for full-term uncomplicated delivery Status: Acute (2) Anhydramnios in second trimester Code(s): O41.02X0 - Oligohydramnios, second trimester, not applicable or unspecified Status: Acute (3) Oligohydramnios due to rupture of membranes Code(s): O41.00X0 - Oligohydramnios, unspecified trimester, not applicable or unspecified; O42.90 - Premature rupture of membranes, unspecified as to length of time between rupture and onset of labor, unspecified weeks of gestation Status: Acute (4) 20 weeks gestation of Code(s): Z3A.20 - 20 weeks gestation of Status: Acute Plan: Had an extensive discussion with patient and family. Unfortunately at this time the is not viable. Initially patient(her mother father several aunts and cousins as well as the father of the baby) and family requested transfer however the estimated weight is 307 g. They were made aware that at this weight of just above 300 g the likelihood of any type of survival outside of the uterus is virtually nil .I did discuss with them delivering a 500 g but even that is considered to be quite rare to have intact or any type of survivability. Clinically strongly suggests not only oligohydramnios secondary to rupture of membranes but placental abruption being the placenta was noted to be anterior on an ultrasound which was only several days ago and now covering the cervical os. At this time since there is a heartbeat they do not want any actions to try to actively evacuate or terminate the however they understand should an emergency arise and bleeding becomes heavy or profuse and compromises the maternal well being that evacuation of the may need to be performed whether a trial of labor vaginally with induction medications or emergent hysterotomy to evacuate the . At this time will obtain a serial CBC, type and crossmatch, as well as start IV antibiotics. has signed a consent to proceed for vaginal delivery or surgical intervention as clinically indicated (5) Placental abruption in second trimester Code(s): O45.92 - Premature separation of placenta, unspecified, second trimester Status: Acute - Plan miscarriage at 20 weeks for oligohydramnios and depression, baby delivered with Apgars 0/0. -Continue routine care -Vital signs stable -No signs of hemorrhage -Uncomplicated delivery -plan to d/c today
[2018-08-31 08:34] VITALS: BP 119/76; PULSE 96; TEMP 98.3
[2018-08-31] MEDS ORDERED: Senna/Docusate Sodium 8.6/50 MG Tablet PO SCH (09:00)
== END 2018-08-31 11:30 | disposition home or self-care (01) ==
LOC: HOBED 09:42 → H2E 09:42 → OBSVTOIN 10:32 → H2E 08-31 00:07
PROVIDERS: ADMIT Obstetrics & Gynecology; ATTEND Obstetrics & Gynecology